=== PATIENT | male | born 2000 | race Caucasian/White ===

== ENCOUNTER 2021-11-24 21:19 | Emergency (ER) | payer OTHER ==
[2021-11-24] MEDS ORDERED: ERYTHROMYCIN O3.5 GM OD (23:46)
== END 2021-11-25 00:43 | disposition home or self-care (01) ==
LOC: ER1 21:19
DX: S05.01XA Injury of conjunctiva and corneal abrasion without foreign body, right eye, initial encounter (principal); Z88.0 Allergy status to penicillin; X58.XXXA Exposure to other specified factors, initial encounter
CPT/HCPCS: 99283